=== PATIENT | female | born 1955 | race Caucasian/White ===

== ENCOUNTER 2016-12-09 19:35 | Emergency (ER) | payer SELFPAY ==
[~2016-12-09] VITALS: Ht 157.5 cm; Wt 83.9 kg
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
[~2016-12-09 19:35] MED LIST: ALBUTEROL MININEB NEB; ASPIRIN EC81 M1 PO; B12 5,000 MCG1 EACH PO; CELEBREX PO; CENTRUM PO; COATED ASPIRIN325 M1 PO; COREG PO; CRESTOR10 MG PO; DETROL LA2 MG PO; GLUCOPHAGE500 M1 PO; HCTZ PO; LOPRESSOR PO; NEURONTIN300 MG PO; NORVASC PO; NORVASC2.5 MG PO; ROBITUSSIN A-C-S1 ML PO; TRICOR PO; TYLENOL #3 PO; VIBRAMYCIN100 M1 PO; ZITHROMAX1 G/PKT PO; ZOCOR20 MG PO
== END 2016-12-09 22:22 | disposition home or self-care (01) ==
LOC: SED 19:35
DX: S13.4XXA Sprain of ligaments of cervical spine, initial encounter (principal); S33.5XXA Sprain of ligaments of lumbar spine, initial encounter; E78.5 Hyperlipidemia, unspecified; I10 Essential (primary) hypertension; I25.10 Atherosclerotic heart disease of native coronary artery without angina pectoris; F17.200 Nicotine dependence, unspecified, uncomplicated; V49.00XA Driver injured in collision with unspecified motor vehicles in nontraffic accident, initial encounter; Z88.5 Allergy status to narcotic agent
CPT/HCPCS: 72100; 72125; 99284